=== PATIENT | female | born 1985 | race African-American/Black ===

== ENCOUNTER 2022-04-01 08:42 | Emergency (ER) | payer OTHER ==
[~2022-04-01] VITALS: Ht 160 cm; Wt 84.1 kg
[2022-04-01 09:02] VITALS: TEMP 98.5
[2022-04-01 09:38] LABS: COLLECTION METHOD CLEAN CATCH
[2022-04-01 09:55] LABS: URINE APPEARANCE Clear (CLEAR/HAZY); URINE BLOOD Negative (NEGATIVE); URINE COLOR Yellow (YELLOW); URINE GLUCOSE Negative (NEGATIVE); URINE KETONE Negative (NEGATIVE); URINE NITRATE Negative (NEGATIVE); URINE PROTEIN(semi-quant) Negative (NEGATIVE); URINE UROBILINOGEN 0.2 E.U/dL (0.2-1.0)
[2022-04-01 09:56] LABS: MUCOUS Present (NOT PRESENT); SQUAMOUS EPITHELIAL 0-2 /hpf (0-10); URINE BACTERIA None Seen /hpf (NONE SEEN); URINE RBC 0-2 /hpf (0-2)
[2022-04-01 11:00] VITALS: PULSE 89
[2022-04-01 11:20] VITALS: BP 143/76
== END 2022-04-01 11:20 | disposition home or self-care (01) ==
LOC: COL.ER 08:42
PROVIDERS: Emergency Medicine
DX: O99.891 Other specified diseases and conditions complicating pregnancy (principal); R30.0 Dysuria; Z28.311 Partially vaccinated for COVID-19; Z3A.00 Weeks of gestation of pregnancy not specified